=== PATIENT | male | born 1965 | race Caucasian/White ===

== ENCOUNTER 2016-08-14 15:44 | Emergency (ER) | payer OTHER ==
[~2016-08-14] VITALS: Ht 175.3 cm; Wt 114.4 kg
[~2016-08-14 15:44] MED LIST: HYDR-2164 PO; METO100T93 PO
[2016-08-14 15:47] VITALS: Ht 175.3 cm; Wt 114.4 kg
--- OUTSIDE RECORDS SUMMARY | 2016-08-14 15:48 | XMS REPORT | Referral Summary ---
Author Author [facility] Organization [facility] Address Unknown Phone Unavailable Care Team Providers Care Dentist/Owner Name Role Phone Bakari Rain Primary Care Physician [phone] Encounter VC Date(s): 12/05/14 - 12/05/14 [facility] [address] [place] [id number] Discharge Disposition: 01-Home or Self Care Attending Physician: Eric Rain MD Admitting Physician: Eric Rain MD Vital Signs Most recent to 1 oldest [Reference Range]: Blood Pressure 120/80 mmHg [90-140/60-90 mmHg] (12/05/14 9:46 AM) Problem List Condition Effective Dates Status Health Status Informant Allergic Active rhinitis(Confirmed) Atrial Active fibrillation(Confirm ed) BPH (benign Active prostatic hypertrophy)(Confirm ed) Chronic kidney Active disease (CKD)(Confirmed) Hypertension(Confirm Active ed) Joint pain of Active leg(Confirmed) Obesity(Confirmed) Active patient Plantar Active fasciitis(Confirmed) Shoulder Active pain(Confirmed) Apnea, Active sleep(Confirmed) Allergies, Adverse Reactions, Alerts Substance Reaction Severity Status azithromycin Unknown Active erythromycin Unknown Active Erythromycin Base Active Medications benazepril 20 mg oral tablet 20 mg 1 tabs, Oral, Daily, # 90 tabs, 0 Refill(s), Pharmacy: [facility], 1 tabs Oral Daily Start Date: 02/14/15 Status: Ordered hydrochlorothiazide 25 mg oral tablet 25 mg 1 tabs, Oral, Daily, # 90 tabs, 1 Refill(s), Pharmacy: [facility], 1 tabs Oral Daily Start Date: 02/19/15 Status: Ordered Metoprolol Succinate ER 100 mg oral tablet, extended release 100 mg 1 tabs, Oral, Daily, # 90 tabs, 0 Refill(s), [facility]acy: [facility] Start Date: 02/14/15 Status: Ordered Results Hematology Most recent to 1 oldest [Reference Range]: WBC [4.8-10.8 6.0 10*3/uL 10*3/uL] (12/05/14 12:00 AM) RBC [4.60-6.20] 4.83 (12/05/14 12:00 AM) Hgb [14.0-18.0 14.8 gm/dL gm/dL] (12/05/14 12:00 AM) Hct [42.0-52.0 %] 42.8 % (12/05/14 12:00 AM) MCV [82.0-99.0 fL] 88.6 fL (12/05/14 12:00 AM) MCH [27.0-32.0 pg] 30.6 pg (12/05/14:00 AM) MCHC [32.0-36.0 34.6 gm/dL gm/dL] (12/05/14 12:00 AM) RDW [11.5-14.5 %] 12.7 % (12/05/14 12:00 AM) Platelet [150-400 217 10*3/uL 10*3/uL] (12/05/14 12:00 AM) MPV [8.8-14.8 fL] 10.4 fL (12/05/14 12:00 AM) Immature 0.2 % Granulocytes (12/05/14 12:00 AM) [0.0-1.0 %] Neutrophils [51-75 51 % %] (12/05/14 12:00 AM) Lymphocytes [20-46 32 % %] (12/05/14 12:00 AM) Monocytes [4-11 %] 13 % *HI* (12/05/14 12:00 AM) Eosinophils [0-4 %] 3 % (12/05/14 12:00 AM) Basophils [0-2 %] 1 % (12/05/14 12:00 AM) Neutro Absolute 3.05 10*3 [1.90-7.00 10*3] (12/05/14 12:00 AM) Lymph Absolute 1.91 10*3 [0.80-3.30 10*3] (12/05/14 12:00 AM) [place] Absolute 0.79 10*3 [0.30-1.00 10*3] (12/05/14 12:00 AM) Eos Absolute 0.17 10*3 [0.00-0.50 10*3] (12/05/14 12:00 AM) Baso Absolute 0.05 10*3 [0.00-0.20 10*3] (12/05/14 12:00 AM) Chemistry Most recent to 1 oldest [Reference Range]: Sodium Lvl [135-144 140 mEq/L mEq/L] (12/05/14 12:00 AM) Potassium Lvl 4.8 mEq/L [3.5-5.2 mEq/L] (12/05/14 12:00 AM) Chloride [99-111 105 mEq/L mEq/L] (12/05/14 12:00 AM) CO2 [23-31 mEq/L] 30 mEq/L (12/05/14 12:00 AM) AGAP [3-20] 5 (12/05/14:00 AM) BUN [8-26 mg/dL] 18 mg/dL (12/05/14 12:00 AM) Glucose Lvl [70-99 84 mg/dL mg/dL] (12/05/14 12:00 AM) Creatinine Lvl 1.38 mg/dL [0.72-1.25 mg/dL] *HI* (12/05/14 12:00 AM) eGFR [>60 mL/min] 54 mL/min 1 *ABN* (12/05/14 12:00 AM) Calcium Lvl 9.7 mg/dL [8.9-10.5 mg/dL] (12/05/14 12:00 AM) Albumin Lvl [3.5-5.0 4.3 gm/dL gm/dL] (12/05/14 12:00 AM) Total Protein 7.2 gm/dL [6.4-8.3 gm/dL] (12/05/14 12:00 AM) Globulin [1.8-4.0 2.9 gm/dL gm/dL] (12/05/14 12:00 AM) ALT [0-55 U/L] 52 U/L (12/05/14 12:00 AM) AST [5-34 U/L] 29 U/L (12/05/14 12:00 AM) Alk Phos [40-150 61 U/L U/L] (12/05/14 12:00 AM) Bili Total [0.2-1.2 0.6 mg/dL mg/dL] (12/05/14 12:00 AM) Uric Acid [3.5-7.2 7.7 mg/dL mg/dL] *HI* (12/05/14 12:00 AM) PSA (wihout Reflex 0.5 ng/mL 2 Free) [0.0-3.5 (12/05/14 12:00 AM) ng/mL] Chol [0-199 mg/dL] 168 mg/dL (12/05/14 12:00 AM) Trig [0-149 mg/dL] 130 mg/dL (12/05/14 12:00 AM) HDL [40-84 mg/dL] 47 mg/dL (12/05/14 12:00 AM) LDL [0-130 mg/dL] 95 mg/dL (12/05/14 12:00 AM) VLDL Cholesterol 26 mg/dL [0-28 mg/dL] (12/05/14 12:00 AM) Cardiac Risk 3.6 [0.0-5.7] (12/05/14 12:00 AM) 1Result Comment: Multiply eGFR results by 1.21 for race. 2Result Comment: AUA PSA Best Practice Guidelines: Age-Adjusted PSA Values by Ethnic Group Age Range Asians - Caucasians Americans 40-49 0-2.0 0-2.0 0-2.5 50-59 0-3.0 0-4.0 0-3.5 60-69 0-4.0 0-4.5 0-4.5 70-79 0-5.0 0-5.5 0-6.5 Urinalysis Most recent to 1 oldest [Reference Range]: UA Color Yellow (12/05/14 10:27 AM) UA Appear Clear (12/05/14 10:27 AM) UA pH [5.0-8.0] 7.0 (12/05/14 10:27 AM) UA Leuk Est Negative [Negative] (12/05/14 10:27 AM) UA Nitrite Negative [Negative] (12/05/14 10:27 AM) UA Protein Negative [Negative] (12/05/14 10:27 AM) UA Glucose Negative [Negative] (12/05/14 10:27 AM) UA Ketones Negative [Negative] (12/05/14 10:27 AM) UA Urobilinogen 0.2 mg/dL [<1.0 mg/dL] (12/05/14 10:27 AM) UA Bili [Negative] Negative (12/05/14 10:27 AM) UA Blood [Negative] Negative (12/05/14 10:27 AM) UA Spec Grav 1.019 [1.003-1.030] (12/05/14 10:27 AM) Type Voided (12/05/14 10:27 AM) Immunizations Vaccine Date Refusal Reason hepatitis B pediatric vaccine 11/01/08 hepatitis B pediatric vaccine 06/17/08 hepatitis B pediatric vaccine 05/17/08 influenza virus vaccine, inactivated 04/10/15 influenza virus vaccine, live 04/04/09 tetanus toxoid 07/17/07 tetanus-diphth toxoids (Td) adult/adol 12/14/99 Procedures Procedure Date Related Diagnosis Body Site Collection of venous blood by venipuncture 12/05/14 Carpal tunnel release Social History Social History Type Response Smoking Status Never smoker Assessment and Plan Extracted from: Title: Office Visit Note Author: Eric Rain MD Date: 12/05/14 Assessment/Plan Allergic rhinitis This issue is stable and appropriate refills, lab, and f/u have been discussed. Claritin 10mg po daily. NO pseudophed was recommended. Apnea, sleep This issue is stable and appropriate refills, lab, and f/u have been discussed. Continue with cpap. BPH (benign prostatic hypertrophy) This issue is stable and appropriate refills, lab, and f/u have been discussed. Chronic kidney disease (CKD) This issue is stable and appropriate refills, lab , and f/u have been discussed. Limit/avoid all nsaids. Elevated cholesterol This issue is stable and appropriate refills, lab, and f/ u have been discussed. Lab pending. Ordered: Lipid Panel Hypertension This issue is stable and appropriate refills, lab, and f/u have been discussed. The patient reports their blood pressure has been stable at home and is not having any significant or related problems. There has been no chest pain, chest pressure, soa/watson. Ordered: CBC w/ Differential Comprehensive Metabolic Panel Uric Acid Urinalysis with Culture if Indicated Joint pain of leg This issue is stable and appropriate refills, lab, and f/u have been discussed. Uric acid and lab pending. Plantar fasciitis This issue is stable and appropriate refills, lab, and f/u have been discussed. Consider consult with Podiatry when interested. Prostate cancer screening Lab pending. Ordered: Prostate Specific Antigen
--- OUTSIDE RECORDS SUMMARY | 2016-08-14 15:48 | XMS REPORT | Referral Summary ---
Author Author [facility] Organization [facility] Address Unknown Phone Unavailable Care Team Providers Care Rivet Bucker Name Role Phone Bakari Rain Primary Care Physician [phone] Encounter Date(s): 07/09/15 - 07/09/15 [facility] [address] [place] [address] Discharge Disposition: 01-Home or Self Care Attending Physician: Eric Rain MD Admitting Physician: Eric Rain MD Vital Signs Most recent to 1 oldest [Reference Range]: Blood Pressure 120/90 mmHg [90-140/60-90 mmHg] (07/09/15 9:14 AM) Problem List Condition Effective Dates Status [...] erythromycin Unknown Active Erythromycin Base Active Medications acetaZOLAMIDE 125 mg oral tablet 125 mg 1 tabs, Oral, Daily, # 10 tabs, 0 Refill(s), [facility]: [id number], 1 tabs Oral Daily,x10 days Start Date: 07/09/15 Stop Date: 07/19/15 Status: Ordered benazepril 20 mg oral tablet 20 mg 1 tabs, Oral, Daily, # 90 tabs, 0 Refill(s), Pharmacy: [facility], 1 tabs Oral Daily Start Date: 02/14/15 Status: Ordered hydrochlorothiazide 25 mg oral tablet 25 mg 1 tabs, Oral, Daily, # 90 tabs, 1 Refill(s), Pharmacy: [facility], 1 tabs Oral Daily Start Date: 02/19/15 Status: Ordered Metoprolol Succinate ER 100 mg oral tablet, extended release 100 mg 1 tabs, Oral, Daily, # 90 tabs, 1 Refill(s), Pharmacy: [facility] # [id number] Start Date: 07/09/15 Stop Date: 01/05/16 Status: Ordered Results No data available for this section Immunizations Vaccine Date Refusal Reason hepatitis B pediatric vaccine 11/01/08 hepatitis B pediatric vaccine 06/17/08 hepatitis B pediatric vaccine 05/17/08 influenza virus vaccine, inactivated 04/10/15 influenza virus vaccine, live 04/04/09 tetanus toxoid 07/17/07 tetanus-diphth toxoids (Td) adult/adol 12/14/99 Procedures Procedure Date Related Diagnosis Body Site Carpal tunnel release Social History Social History Type Response Smoking Status Never smoker Assessment and Plan Extracted from: Title: Ambulatory Patient Education Author: Eric Rain MD Date: Cardiovascular Heart Attack A heart attack (myocardial infarction, PA) causes damage to your heart that cannot be fixed. A heart attack can happen when a heart (coronary) artery becomes blocked or narrowed. This cuts off the blood supply and oxygen to your heart. When one or more of your coronary arteries becomes blocked, that area of your heart begins to . This causes the pain you feel during a heart attack. Heart attack pain can also occur in one part of the body but be felt in another part of the body (referred pain). You may feel referred heart attack pain in your left arm, neck, or jaw. Pain may even be felt in the right arm. CAUSES Many conditions can cause a heart attack. These include: Atherosclerosis. This is when a fatty substance (plaque) gradually builds up in the arteries. This buildup can block or reduce the blood supply to one or more of the heart arteries. A blood clot. A blood clot can develop suddenly when plaque breaks up ( ruptures) within a heart artery. A blood clot can block the heart artery, which prevents blood flow to the heart. Severe tightening (spasm) of the heart artery. This cuts off blood flow through the artery. RISK FACTORS People at risk for heart attack usually have one or more of the following risk factors: High blood pressure (hypertension). High cholesterol. Smoking. Being male. Being overweight or obese. Older aged. A family history of heart disease. Lack of exercise. Diabetes. Stress. Drinking too much alcohol. Using illegal street drugs, such as cocaine and methamphetamines. SYMPTOMS Heart attack symptoms can vary from person to person. Symptoms depend on factors like gender and age. In both men and women, heart attack symptoms can include the following: Chest pain. This may feel like crushing, squeezing, or a feeling of pressure. Shortness of breath. Heartburn or indigestion with or without vomiting, shortness of breath, or sweating. Sudden cold sweats. Sudden light-headedness. Upper back pain. Women can have unique heart attack symptoms, such as: Unexplained feelings of nervousness or anxiety. Discomfort between the shoulder blades or upper back. Tingling in the hands and arms. Older people (of both genders) can have subtle heart attack symptoms, such as: Sweating. Shortness of breath. General tiredness or not feeling well. DIAGNOSIS Diagnosing a heart attack involves several tests. They include: An assessment of your vital signs. This includes checking your: Heart rhythm. Blood pressure. Breathing rate. Oxygen level. An ECG (electrocardiogram) to measure the electrical activity of your heart. Blood tests called cardiac markers. In these tests, blood is drawn at scheduled times to check for the specific proteins or enzymes released by damaged heart muscle. A chest X-ray. An echocardiogram to evaluate heart motion and blood flow. Coronary angiography to look at the heart arteries. TREATMENT Treatment for a heart attack may include: Medicine that breaks up or dissolves blood clots in the heart artery. Angioplasty. Cardiac stent placement. Intra-aortic balloon pump therapy (IABP). Open heart surgery (coronary artery bypass graft, CABG). HOME CARE INSTRUCTIONS Take medicines only as directed by your health care provider. You may need to take medicine after a heart attack to: Keep your blood from clotting too easily. Control your blood pressure. Lower your cholesterol. Control abnormal heart rhythms. Make lifestyle changes as directed by your health care provider. These may include: Quitting smoking, if you smoke. Getting regular exercise. Ask your health care provider to suggest some activities that are safe for you. Eating a heart-healthy diet. A registered dietitian can help you learn healthy eating options. Maintaining a healthy weight. Managing diabetes, if necessary. Reducing stress. Limiting how much alcohol you drink. SEEK IMMEDIATE MEDICAL CARE IF: You have sudden, unexplained chest discomfort. You have sudden, unexplained discomfort in your arms, back, neck, or jaw. You have shortness of breath at any time. You suddenly start to sweat or your skin gets clammy. You feel nauseous or vomit. You suddenly feel light-headed or dizzy. Your heart begins to beat fast or feels like it is skipping beats. These symptoms may represent a serious problem that is an emergency. Do not wait to see if the symptoms will go away. Get medical help right away. Call your local emergency services (911 in the [place] Do not drive yourself to the hospital. MAKE SURE YOU: Understand these instructions. Will watch your condition. Will get help right away if you are not doing well or get worse. This information is not intended to replace advice given to you by your health care provider. Make sure you discuss any questions you have with your health care provider. Document Released: 03/14/2006 Document Revised: 12/31/2014 Document Reviewed: [facility] Patient Information 2015 [employer]. No follow up information was provided. Extracted from: Title: Office Visit Note Author: Eric Rain MD Date: 07/09/15 Assessment/Plan Apnea, sleep This issue was reviewed, appears stable, and current therapy continued except as mentioned. Appropriate lab was reviewed from the most recent appropriate entry and lab was ordered if needed in the cpoe/nursing orders, and follow up recommended generally in 90 days and no later then six months. Compliant with cpap. BPH (benign prostatic hypertrophy) This issue was reviewed, appears stable, and current therapy continued except as mentioned. Appropriate lab was reviewed from the most recent appropriate entry and lab was ordered if needed in the cpoe/nursing orders, and follow up recommended generally in 90 days and no later then six months. Chronic kidney disease (CKD) This issue was reviewed, appears stable, and current therapy continued except as mentioned. Appropriate lab was reviewed from the most recent appropriate entry and lab was ordered if needed in the cpoe /nursing orders, and follow up recommended generally in 90 days and no later then six months. No nsaids. High altitude dyspnea. Diamox 125mg po daily for 3-4 days. Extras given. If soa/watson go to lower altitude. A work/school note was offered and deferred by the patient. Hypertension This issue was reviewed, appears stable, and current therapy continued except as mentioned. Appropriate lab was reviewed from the most recent appropriate entry and lab was ordered if needed in the cpoe/nursing orders, and follow up recommended generally in 90 days and no later then six months. The patient had an elevated blood pressure reading and is to monitor their bp and call with a report if consistently > 140/90. Metatarsalgia Hand out given. Orders: metoprolol, 100 mg 1 tabs, Oral, Daily, Short supply while waiting on mail order, # 30 tabs, 0 Refill(s)
--- OUTSIDE RECORDS SUMMARY | 2016-08-14 15:48 | XMS REPORT | Referral Summary ---
Author Author [facility] Organization [facility] Address Unknown Phone Unavailable Care Team Providers Care Master Esthetician Name Role Phone Bakari Rain Primary Care Physician [phone] Encounter Date(s): 04/10/15 - 04/10/15 [facility] [address] [place] [id number] Discharge Disposition: 01-Home or Self Care Attending Physician: Eric Rain MD Admitting Physician: Eric Rain MD Vital Signs No data available for this section Problem List Condition Effective Dates Status Health [...] # 90 tabs, 0 Refill(s), [facility]acy: [facility] Start Date: 02/14/15 Status: Ordered Results No data available for [...] Smoking Status Never smoker Assessment and Plan No data available for this section
--- OUTSIDE RECORDS SUMMARY | 2016-08-14 15:48 | XMS REPORT | Continuity of Care Document ---
Author Author Debra Verdin LPN Ambulatory Address [address] [place] [id number] Phone Unavailable Care Team Providers Care Extended Insurance Clerk Name Role Phone NataliyasarahEric gayle PP Unavailable Payers Payer name Insurance type Covered alliance party ID Authorization(s) Unknown Problems Condition Effective Dates (start - stop) Clinical Status Well male exam - *Acute Benign prostatic hypertrophy - *Controlled Other dyspnea and respiratory abnormality - *Chronic Hypertension, benign - *Controlled Chronic kidney disease - *Controlled Atrial flutter - *Controlled BPH - *Controlled Overweight - *Chronic Lumbago - *Resolved Hypertension, Benign - *Chronic Depression - *Controlled Chronic kidney disease, Stage II (mild) - Mild Screening examination for pulmonary tuberculosis - Abnormal blood chemistry - *Controlled Chronic kidney disease, stage II (mild) - Chronic Hypertension, benign - *Chronic Pain in limb - *Controlled Other chronic nonalcoholic liver disease - *Controlled Chronic kidney disease, Stage II (mild) - Chronic Hypertension, benign - *Chronic Chronic kidney disease, stage II (mild) - Chronic Abdominal pain, RUQ - *Chronic Pain in limb - *Chronic Atrial flutter - *Controlled Chronic kidney disease, Stage II (mild) - Chronic Sinusitis, acute - *Acute Bronchitis, acute - *Acute Unspecified hypertrophic and atrophic condition of - *Chronic Bronchitis, Acute - *Acute Hypertension, Benign - *Chronic Depression - *Chronic Chronic kidney disease, Stage III (moderate) - Moderate OTHER ABNORMAL GLUCOSE - *Resolved Overweight - *Chronic Family History Family Member Diagnosis Age At Onset Status Father (Unknown) Hypertension Yes Mother (Unknown) Alive and well (Unknown) Father (Unknown) Alive and well (Unknown) Mother (Unknown) Hypertension Yes Social History Social History Element Description Quantity Unknown Allergies, Adverse Reactions, Alerts Substance Reaction Severity Status ERYTHROMYCIN BASE Unknown Unknown AZITHROMYCIN Unknown Unknown Medications Medication Instructions Dosage Effective Dates (start - stop) Status Lotensin 20 mg tablet take 1 tablet (20MG) by oral route every day 20 MG - No Longer Active hydrochlorothiazide 25 mg tablet Take 1 tablet by mouth every day. 2013 - No Longer Active Toprol XL 100 mg tablet,extended release Take 1 tablet by mouth every day. - No Longer Active Lotensin 20 mg tablet take 1 tablet (20MG) by oral route every day 20 MG - Active hydrochlorothiazide 25 mg tablet Take 1 tablet by mouth every day. 2013 - Active Toprol XL 100 mg tablet,extended release Take 1 tablet by mouth every day. - Active Immunizations Vaccine Date Status Comments flu (split) (3 yrs or older) completed - Completed reason: source unspecified Tetanus Toxoid completed - Completed reason: source unspecified Td (adult) completed - Completed reason: source unspecified hep B (ped/adol, 3 dose) completed - Completed reason: source unspecified hep B (ped/adol, 3 dose) completed - Completed reason: source unspecified hep B (ped/adol, 3 dose) completed - Completed reason: source unspecified Results Test Name Date and Time Measure Units Reference Range Abnormal Flag Comments Panel Description: CBC WBC 10:21:00 5.6 K/uL 4.8-10.8 RBC 10:21:00 4.88 M/uL 4.60-6.20 HGB 10:21:00 15.1 g/dl 14.0-18.0 HCT 10:21:00 42.9 % 42.0-52.0 MCV 10:21:00 87.9 fL 82.0-99.0 MCH 10:21:00 30.9 pg 27.0-32.0 MCHC 10:21:00 35.2 g/dL 32.0-36.0 RDW 10:21:00 12.4 % 11.5-14.5 MPV 10:21:00 10.8 fL 8.8-14.8 Platelet Count 10:21:00 247 K/uL 150-400 Immature Granulocytes 10:21:00 0.4 % 0.0-1.0 Absolute Neutrophils 10:21:00 3.01 THOUS 1.90-7.00 Absolute Lymphocytes 10:21:00 1.64 THOUS 0.80-3.30 Absolute Monocytes 10:21:00 0.69 THOUS 0.30-1.00 Absolute Eosinophils 10:21:00 0.16 THOUS 0.00-0.50 Absolute Basophils 10:21:00 0.06 THOUS 0.00-0.20 Neutrophils 10:21:00 54 % 51-75 Lymphocytes 10:21:00 29 % 20-46 Monocytes 10:21:00 12 % 4-11 H Eosinophils 10:21:00 3 % 0-4 Basophils 10:21:00 1 % 0-2 Testing performed at [facility] [address] [facility] [address] [employer] Supervisor Monroe Hadley MD Panel Description: Chemistry Profile Glucose 10:21:00 91 mg/dL 70-99 BUN 10:21:00 14 mg/dL 8-26 Creatinine 10:21:00 1.38 mg/dL 0.72-1.25 H Calcium 10:21:00 9.7 mg/dL 8.9-10.5 Sodium 10:21:00 139 mEq/L 135-144 Potassium 10:21:00 4.5 mEq/L 3.5-5.2 Chloride 10:21:00 103 mEq/L 99-111 CO2 10:21:00 32 mEq/L 23-31 H Albumin 10:21:00 4.5 g/dL 3.5-5.0 Bilirubin Total 10:21:00 0.8 mg/dL 0.2-1.2 Alkaline Phosphatase 10:21:00 77 U/L 40-150 Protein 10:21:00 7.4 g/dL 6.4-8.3 ALT (SGPT) 10:21:00 46 U/L 0-55 AST (SGOT) 10:21:00 29 U/L 5-34 Anion Gap 10:21:00 4 3-20 Globulin 10:21:00 2.9 g/dL 1.8-4.0 Testing performed at [facility] [address] [place] [address] [employer] Supervisor Monroe Hadley MD Panel Description: Lipid Profile-[facility] Cholesterol 10:21:00 158 mg/dL 0-199 Triglycerides 10:21:00 76 mg/dL 0-149 HDL Cholesterol 10:21:00 43 mg/dL 40-84 LDL Cholesterol 10:21:00 100 mg/dL 0-130 VLDL Cholesterol 10:21:00 15 mg/dL 0-28 Cardiac Risk 10:21:00 3.7 0.0-5.7 Testing performed at [facility] [address] [place] [address] [employer] Supervisor Monroe Hadley MD Panel Description: Non-HDL Cholesterol-[facility] Non-HDL Cholesterol 10:21:00 115 mg/dL 0-159 Testing performed at [facility] [address] [place] [address] [employer] Supervisor Monroe Hadley MD Panel Description: TSH-[facility] TSH 10:21:00 1.64 uIU/mL 0.35-4.94 Testing performed at [facility] [address] [place] [address] [employer] Supervisor Monroe Hadley MD Panel Description: EGFR-[facility] eGFR 10:21:00 55 mL/min >60 A Multiply eGFR results by 1.21 for race.Testing performed at [facility] [address] [place] [address] [employer] Supervisor Monroe Hadley MD Panel Description: Direct Bilirubin Bilirubin Direct 10:21:00 0.3 mg/dL 0.0-0.5 Testing performed at [facility] [address] [place] [address] [employer] Supervisor Monroe Hadley MD Panel Description: Prostatic Specific Antigen-[facility] PSA 10:21:00 0.4 ng/mL 0.0-2.5 AUA PSA Best Practice Guidelines: Age-Adjusted PSA Values by Ethnic GroupAge Range Asians - Caucasians [id number] 0-2.0 0-2.0 0-2.550-59 0-3.0 0-4.0 0-3.560-69 0-4.0 0-4.5 0-4.570-79 0-5.0 0-5.5 0-6.5Testing performed at [facility] [address] [place] [address] [employer] Supervisor Monroe Hadley MD Panel Description: Urinalysis with Reflex Microscopic Appearance 10:21:00 Clear Color 10:21:00 Yellow Glucose, Urine 10:21:00 Negative Negative Ketones 10:21:00 Negative Negative Blood 10:21:00 Negative Negative Protein 10:21:00 Negative Negative Nitrites 10:21:00 Negative Negative Bilirubin 10:21:00 Negative Negative Specific [place] 10:21:00 1.009 1.003-1.03 pH 10:21:00 7.5 5.0-8.0 Urobilinogen 10:21:00 0.2 mg/dL <1.0 Leukocyte Esterase 10:21:00 Negative Negative Testing performed at [facility] [address] [facility] [address] [employer] Supervisor Monroe Hadley MD Vital Signs Date / Time: Height Weight Pulse Rate Blood Pressure Temperature /09:44:00 69.00 in 248.00 lbs 130/90 mm[Hg] 96.4 F Procedures Procedure Date Unknown Encounters Encounter Location Date Patient Visit [facility] Patient Visit [facility] Patient Visit [facility] Patient Visit [facility] Patient Visit Conversion Patient Visit [facility] Patient Visit Conversion Advance Directives Directive Effective Date Unknown
--- OUTSIDE RECORDS SUMMARY | 2016-08-14 15:48 | XMS REPORT | Referral Summary ---
Author Author [facility] Organization [facility] Address Unknown Phone Unavailable Care Team Providers Care Predatory Animal Exterminator Name Role Phone Bakari Rain Primary Care Physician [phone] Encounter Date(s): 04/08/15 - 04/08/15 [facility] [address] [place] [address] Discharge Disposition: 01-Home or Self Care Attending [...] # 90 tabs, 0 Refill(s), Pharmacy: [facility] Start Date: 02/14/15 Status: Ordered Results No data available for this section Immunizations Vaccine Date Refusal Reason hepatitis B pediatric vaccine 11/01/08 hepatitis B pediatric vaccine 06/17/08 hepatitis B pediatric vaccine 05/17/08 influenza virus vaccine, live 04/04/09 tetanus toxoid 07/17/07 tetanus-diphth toxoids (Td) adult/adol 12/14/99 Procedures Procedure Date Related Diagnosis Body Site Carpal tunnel release Social History Social History Type Response Smoking Status Never smoker Assessment and Plan No data available for this section
--- OUTSIDE RECORDS SUMMARY | 2016-08-14 15:48 | XMS REPORT | Continuity of Care Document ---
Author Author [facility] Organization [facility] Address Unknown Phone Unavailable Allergies Active Description Code Type Severity Reaction Onset Reported/Identified Relationship to Patient Clinical Status Yes azithromycin NKMA N/A Unknown 07/26/2013 Yes erythromycin NKMA N/A Unknown 07/26/2013 Yes Erythromycin Base NKMA N/A N/A 12/07/2013 Medications Problems Procedures Results Test Result Range Hemoglobin A1C - 06/09/16 10:45 Hemoglobin A1C 5.4 % 4.1-5.6 Estimated Average Glucose - 06/09/16 10:45 Estimated Average Glucose 108.3 mg/dL Encounters ACCT No. Visit Date/Time Discharge Status Pt. Type Provider Facility Loc./Unit Complaint [id number] 05/23/2013 09:44:00 05/23/2013 23 :59:59 CLS Outpatient
--- NOTE | 2016-08-14 15:50 | NUR ---
PROVIDER DR. ROCK IN ROOM WITH PT.
--- OUTSIDE RECORDS SUMMARY | 2016-08-14 16:11 | XMS REPORT | Continuity of Care Document ---
Author Author [facility] Organization [facility] Address Unknown Phone Unavailable Allergies [...] Status Pt. Type Provider Facility Loc./Unit Complaint [id number] 05/23/2013 09:44:00 05/23/2013 23 :59:59 CLS Outpatient
--- NOTE | 2016-08-14 16:12 | ERPDOC ---
Departure Disposition Decision Date: August 14, 2016 Disposition Decision Time: 21:01 Disposition: 01 DISCHARGED HOME, SELF-CARE Impression Impression Impression: Primary Impression: Sinus tachycardia by electrocardiogram Seen By: Mid-level only Referrals: SHERIF SALINAS MD (Family) Patient Instructions: Tachycardia (ED) Problems/Meds/Labs Reviewed?: Yes Medications reviewed and manag: Yes Additional Instructions: Your labs and CT of chest did not indicated any etiology for tachycardia. Increased metoprolol to 200mg daily. Call Dr. Grier's office Tuesday for appointment. Let them know we spoke with him while you were in the ED. Stay well hydrated. Follow up care ordered?: Yes Mental Status: Alert, Oriented HPI - Cardiac General Chief Complaint: Palpitations Stated Complaint: IRR HEART RYTHM Time Seen by Provider: 16:12 Source: patient HPI - Cardiac General Initial Comments 51 YO M presents to ED with report of rapid heart rate. Patient says that he Allergies: Coded Allergies: azithromycin (Verified Allergy, Mild, HIVES, 08/14/16) Penicillins (Verified Allergy, Unknown, NOT SURE HAPPENED DURING CHILDHOOD , 08/14/16) erythromycin base (Verified Allergy, Unknown, 08/14/16) Past History Vaccines Hx Tetanus, Diptheria, Pertuss: Yes (GIVEN 11/30/08) Physical Exam General Vitals and Pain First Documented Vital Signs Date Time Temp Pulse Resp B/P Pulse Ox O2 Delivery O2 Flow Rate FiO2 08/14/16 15:47 98.6 131 18 146/92 98 Room Air Weight: Kilograms: 114.400 Height (feet): 5 Height (inches): 9.00 Triage Pain Scale: Differential Diagnoses Considering: Acute MO, Anxiety/Panic, Atrial Fibrillation, CHF, PSVT Progress Results/Orders Orders Procedure Category Date Status Time Cbc W/Auto LAB 08/14/16 Complete Diff-Reflex Manual Cmp - Comprehensive LAB 08/14/16 Complete Metabolic Troponin I W LAB 08/14/16 Complete Hemolysis Index EKG EKG 08/14/16 Taken D-Dimer LAB 08/14/16 Complete Probnp LAB 08/14/16 Complete Normal Saline (Normal PHA 08/14/16 Complete Saline Iv) 16:30 Lorazepam (Ativan) PHA 08/14/16 Complete 17:45 Ua, Dip Wreflex LAB 08/14/16 Complete Microsc & Risk Control Specialist 18:[address] 08/14/16 Taken Iohexol (Omnipaque) PHA 08/14/16 Complete 19:23 Normal Saline (Ns) PHA 08/14/16 Complete 19:23 Saline Flush (Iv PHA 08/14/16 Complete Flush) 19:23 Normal Saline (Ns) PHA 08/14/16 Complete 20:30 Tsh - Thyroid Stim LAB 08/14/16 Complete Hormone Magnesium LAB 08/14/16 Complete Lab Results Laboratory Tests Test 08/14/16 16:07 08/14/16 18:40 White Blood Count 7.9T/MM3 Red Blood Count 5.05M/MM3 Hemoglobin 15.8GM/DL Hematocrit 44.9% Mean Corpuscular Volume 88.9UM3 Mean Corpuscular Hemoglobin 31.3UUG Mean Corpuscular Hemoglobin Concent 35.2GM/DL RDW Standard Deviation 40.6FL Platelet Count 231T/MM3 Mean Platelet Volume 9.5UM3 Immature Granulocyte % (Auto) 0.3% Neutrophils (%) (Auto) 58.8% Lymphocytes (%) (Auto) 29.2% Monocytes (%) (Auto) 8.8% Eosinophils (%) (Auto) 2.4% Basophils (%) (Auto) 0.5% Absolute Immature Granulocyte (auto 0.02T/MM3 Absolute Neutrophils (auto) 4.6T/MM3 Absolute Lymphocytes (auto) 2.3T/MM3 Absolute Monocytes (auto) 0.7T/MM3 Absolute Eosinophils (auto) 0.2T/MM3 Absolute Basophils (auto) 0.0T/MM3 D-Dimer < 150NG/ML Turbidity < 20 Sodium Level 145MEQ/L Potassium Level 3.7MEQ/L Chloride Level 102MEQ/L Carbon Dioxide Level 28MEQ/L Anion Gap 15MEQ/L Blood Urea Nitrogen 20.0MG/DL Creatinine 1.5MG/DL Glomerular Filtration Rate Calc 49 BUN/Creatinine Ratio 13RATIO Glucose Level 123MG/DL Calculated Osmolality 283MOSM/KG Calcium Level 10.1MG/DL Magnesium Level 2.0MG/DL Total Bilirubin 0.40MG/DL Icterus Index < 2 Aspartate Amino Transf (AST/SGOT) 32U/L Alanine Aminotransferase (ALT/SGPT) 56U/L Alkaline Phosphatase 86U/L Troponin I < 0.012ng/ml [id number] Natriuretic Peptide 32PG/ML Total Protein 8.0G/DL Albumin 5.0G/DL Globulin 3.0G/DL Albumin/Globulin Ratio 1.7RATIO Thyroid Stimulating Hormone (TSH) 2.14MIU/L Chemistry Specimen Hemolysis < 15 Urine Collection Type Voided-not cc-midstr Urine Color Yellow Urine Turbidity Clear Urine pH 6.0 Urine Specific [place] 1.015 Urine Protein Negative Urine Glucose (UA) Negative Urine Ketones Negative Urine Blood Negative Urine Nitrite Negative Urine Bilirubin Negative Urine Urobilinogen 0.2EU/DL Urine Leukocyte Esterase Negative Urinalysis Comment Microscopic not ind. Medications Current ED Medications Sodium Chloride (Normal Saline IV) 1,000 ml @ 0 mls/hr Q0M ONCE IV Last administered on 08/14/16 16:35; Start 08/14/16 at 16:30; Stop 08/14/16 at 16:31 ; Status DC Lorazepam (Ativan) 1 mg O ONCE IV Last administered on 08/14/16 17:57; Start 08/14/16 at 17:45; Stop 08/14/16 at 17:46; Status DC Iohexol 1 bottle 1 bottle STK-MED ONCE .ROUTE ; Start 08/14/16 at 19:23; Stop at 19:24; Status DC Sodium Chloride (NS) 100 ml @ As Directed STK-MED ONCE .ROUTE ; Start 08/14/16 at 19:23; Stop 08/14/16 at 19:24; Status DC Sodium Chloride 10 ml 10 ml STK-MED ONCE .ROUTE ; Start 08/14/16 at 19:23; Stop 08/14/16 at 19:24; Status DC Sodium Chloride (NS) 500 ml @ 0 mls/hr Q0M ONCE IV Last administered on 20:30; Start 08/14/16 at 20:30; Stop 08/14/16 at 20:31; Status DC EKG EKG : Rate: >100 Rhythm: sinus [place]: normal QRS: normal Intervals: normal ST/T: non-specific changes Other: PVC Interpreted by: signing physician CT CT : CT: PE IV contrast Interpretation: Normal, Faxed Report DANA CENTENO FAST FOOD SHIFT SUPERVISOR August 14, 2016 16:12
--- NOTE | 2016-08-14 16:13 | NUR ---
PROVIDER WENDY CENTENO APRN IN ROOM WITH PT.
[2016-08-14 16:15] LABS: BASOPHILS % (AUTO) 0.5 % (0-2); EOSINOPHILS # (AUTO) 0.2 T/MM3 (0-0.5); EOSINOPHILS % (AUTO) 2.4 % (0-4); HCT - HEMATOCRIT 44.9 % (41-53); HGB - HEMOGLOBIN 15.8 GM/DL (13.5-17.5); IMMATURE GRANULOCYTE # (AUTO) 0.02 T/MM3 (0.00-0.03); IMMATURE GRANULOCYTE % (AUTO) 0.3 % (0.0-0.5); LYMPHOCYTES # (AUTO) 2.3 T/MM3 (1-4.8); LYMPHOCYTES % (AUTO) 29.2 % (23-45); MEAN CORPUSCULAR HGB 31.3 UUG (26-34); MEAN CORPUSCULAR HGB CONC(MCHC 35.2 GM/DL (31-37); MEAN CORPUSCULAR VOLUME 88.9 UM3 (80-100); MEAN PLATELET VOLUME 9.5 UM3 (9.4-12.4); MONOCYTES # (AUTO) 0.7 T/MM3 (0-0.8); MONOCYTES % (AUTO) 8.8 % (0-9.0); NEUTROPHILS #(AUTO)-ABSOLUTE 4.6 T/MM3 (1.8-7.7); NEUTROPHILS % (AUTO) 58.8 % (33-66); RED BLOOD COUNT 5.05 M/MM3 (4.50-5.90); WBC - WHITE BLOOD COUNT 7.9 T/MM3 (4.5-11.0)
[2016-08-14 16:24] LABS: ALBUMIN/GLOBULIN RATIO 1.7 RATIO (1.1-2.2); ALKALINE PHOSPHATASE 86 U/L (38-126); ALT (SGPT) 56 U/L (21-72); ANION GAP 15 MEQ/L (5-15); AST (SGOT) 32 U/L (17-59); BUN/CREATININE RATIO 13 RATIO (6-26); CALCIUM 10.1 MG/DL (8.4-10.2); CHLORIDE 102 MEQ/L (98-107); CO2 - CARBON DIOXIDE 28 MEQ/L (22-30); CREATININE 1.5 MG/DL (0.8-1.5); GLOMERULAR FILTRATION RATE 49; GLUCOSE 123 MG/DL (75-110); POTASSIUM 3.7 MEQ/L (3.6-5); SODIUM 145 MEQ/L (134-144)
[2016-08-14] MEDS ORDERED: BENA20TA68 PO (16:29)
[2016-08-14] MEDS ORDERED: NORMAL SALINE 1,000 ML IV ONE (16:30)
--- NOTE | 2016-08-14 16:36 | NUR ---
PT STATUS PT RESTING COMFORTABLY, DENIES ANY CHEST PAIN OR DYSPNEA. PT SHOWS NO SIGNS OF DISTRESS, CALL LIGHT IN REACH, IN ROOM.
[2016-08-14] MEDS ORDERED: LORAZEPAM 2 MG/ML INJECTION IV ONE (17:45)
--- NOTE | 2016-08-14 18:00 | NUR ---
PT STATUS PT CONTINUES TO DENY ANY CHEST PAIN OR DYSPNEA BUT DOES CONTINUED TO FEEL A "SKIP" IN BEAT.
--- NOTE | 2016-08-14 18:31 | NUR ---
STATUS INTRODUCED SELF TO PT. PT RESTING ON RIGHT SIDE. DENIES PAIN. SPOKE ABOUT PREVIOUS ABLATION PROCEDURE. STATES HE HAS NOT HAD ANY SIGNIFICANT ISSUES SINCE ABLATION. PT IS CURRENTLY TACHY - HR 112-123. STATES OCCASSIONAL SHORTNESS OF BREATH FEELING, BUT NOTHING LASTING. AT SIDE.
[2016-08-14 18:46] LABS: BLOOD, URINE NEGATIVE (NEGATIVE); COLOR,URINE YELLOW (YELLOW); LEUKOCYTE ESTERASE ,URINE NEGATIVE (NEGATIVE); NITRITE,URINE NEGATIVE (NEGATIVE); UROBILINOGEN,URINE 0.2 EU/DL (NORMAL)
[2016-08-14] MEDS ORDERED: NORMAL SALINE 100 ML ONE (19:23)
[2016-08-14] MEDS ORDERED: SALINE FLUSH 10ml SYRINGE ONE (19:23)
[2016-08-14] MEDS ORDERED: IOHEXOL 350 MG/ML 75ml INJECTION ONE (19:23)
--- NOTE | 2016-08-14 19:32 | NUR ---
IMAGING PT TO IMAGING AT THIS TIME.
--- NOTE | 2016-08-14 19:53 | NUR ---
IMAGING PT RETURN FROM IMAGING AT THIS TIME.
[2016-08-14] MEDS ORDERED: NORMAL SALINE 500 ML IV ONE (20:30)
[2016-08-14 21:22] VITALS: BP 126/66; PULSE 113; RESP 22; TEMP 98.6; O2SAT 97
--- NOTE | 2016-08-14 21:22 | NUR ---
DEPART PT GIVEN DI FOR TACHYCARDIA AND F/U. VERBALIZES UNDERSTANDING. QUESTIONS ASKED/ANSWERED - DENIES FURTHER QUESTIONS/NEEDS AT THIS TIME. IV SITE REMOVED. PERSONAL BELONGINGS GATHERED. PT AMBULATED/ESCORTED TO ED EXIT - GAIT STABLE, NO SIGN OF DISTRESS AT THIS TIME.
[2016-08-14 21:43] LABS: THYROID STIM HORMONE-TSH 2.14 MIU/L (0.47-4.68)
--- NOTE | 2016-08-15 10:46 | DI ---
Indication: ITS.REASON: tachycardia PROCEDURE: CTA PULMONARY EMBOLI: Encounter: Initial Comparison: None Technique: Axial CT pulmonary angiographic phase images were performed through the chest after the administration of intravenous contrast. Coronal and Sagittal MIP reconstructed images were created and reviewed. Automated Exposure Control and Iterative Reconstruction dose reducing techniques were utilized. Contrast: Omnipaque 350 72 mL Findings: Pulmonary arteries: Exam is diagnostic to the subsegmental pulmonary arterial level. No filling defects identified to suggest a pulmonary embolus. Other findings: The lungs are clear. No pleural effusion or pneumothorax. The central airways are patent. No axillary or mediastinal adenopathy. Heart size is normal. The upper abdomen shows no acute findings. DISH in the thoracic spine. Impression: Negative exam. No acute disease process seen. There is a preliminary report by [facility]. .
== END 2016-08-14 21:22 | disposition home or self-care (01) ==
LOC: ED 15:44
DX: R00.0 Tachycardia, unspecified (principal); I10 Essential (primary) hypertension; Z79.899 Other long term (current) drug therapy
CPT/HCPCS: 71275; 80053; 81003; 83735; 83880; 84443; 84484; 85025; 85379; 93005; 96361; 96374; 99284; J2060; J7030; J7050; Q9967; 36000